=== PATIENT | female | born 1995 | race Hispanic/Latino ===

== ENCOUNTER 2024-07-03 07:38 | Day surgery (SDC) | payer MEDICAID ==
[2024-07-03] MEDS ORDERED: Ondansetron PF 4 MG/2 ML Vial IVP PRN (08:42)
[2024-07-03] MEDS ORDERED: Dextrose 5%-Lactated Ringers 1,000 ML IV SCH (08:45)
[2024-07-03 09:04] VITALS: BMI 30.9
[2024-07-03] MEDS: Ondansetron PF 4 MG/2 ML Vial ONE (09:15)
[2024-07-03 09:19] LABS: #Basophils 0.04 10x3/uL (0.0-0.2); #Eosinophils 0.46 10x3/uL (0.0-0.5); #Monocytes 0.34 10x3/uL (0.0-1.1); #Neutrophils 9.03 10x3/uL (1.5-8.4); %Basophils 0.3 % (0.0-2.0); %Eosinophils 3.7 % (0.0-6.0); %Lymphocytes 20.1 % (18.0-47.0); %Monocytes 2.7 % (0.0-10.0); %Neutrophils 72.7 % (40.0-75.0); Hematocrit 32.9 % (34.9-44.5); Mean Corpuscular HGB CONC 33.4 g/dL (32.0-36.0); Mean Corpuscular Hemoglobin 28.5 pg (27.0-33.0); Mean Corpuscular Volume 85.2 fL (81.6-98.3); Mean Platelet Volume 10.2 fL (7.4-10.4); Platelet Count 302 10x3/uL (150-450); RBC Distribution Width 14.2 % (11.5-14.5); Red Blood Cell (RBC) Count 3.86 10x6/uL (3.90-5.03); White Blood Cell (WBC) Count 12.4 10x3/uL (3.5-10.5)
[2024-07-03 09:32] LABS: ALT (SGPT) 11 U/L (8-55); AST (SGOT) 9 U/L (5-34); Albumin 2.4 g/dL (3.5-5.0); Alkaline Phosphatase 58 U/L (40-110); Anion Gap 12 mmol/L (10-20); BUN (Urea Nitrogen) 6 mg/dL (7.0-18.7); Bilirubin, Total 0.2 mg/dL (0.2-1.2); Calc. Creatinine Clearance 172 mL/min (70-130); Calcium 8.3 mg/dL (7.8-10.44); Carbon Dioxide 20 mmol/L (22-29); Chloride 106 mmol/L (98-107); Estimated GFR 124; Globulin 3.2 g/dL (2.4-3.5); Glucose 159 mg/dL (70-105); Protein, Total 5.6 g/dL (6.0-8.3); Sodium 135 mmol/L (136-145)
[2024-07-03] MEDS: Potassium Chloride 20 MEQ in Premix 1 BAG IVPB SCH (10:17)
[2024-07-03 10:54] LABS: Bilirubin Neg (Negative); Blood, Urine Negative (Negative); Glucose, Urine (Dipstick) 250 mg/dL (Negative); Ketone, Urine Negative (Negative); Leukocyte Negative (Negative); Nitrite Negative (Negative); Protein, Urine (Dipstick) Negative (Neg-Trace); Urobilinogen Normal mg/dL (Less than 2)
[2024-07-03 10:55] LABS: Clarity Clear (Clear)
[2024-07-03 11:28] LABS: Bacteria/HPF Rare-Few HPF (None Seen); CAUTI Indications for Culture Pelvic or flank pain; RBC/HPF None Seen HPF (0-3); WBC/HPF None Seen HPF (0-3)
[2024-07-03 11:29] LABS: Urine Culture Reflex No No
== END 2024-07-03 11:58 | disposition home or self-care (01) ==
LOC: CSHLD/OP 07:38
PROVIDERS: ATTEND Obstetrics & Gynecology
DX: O98.512 Other viral diseases complicating pregnancy, second trimester (principal); A08.4 Viral intestinal infection, unspecified; O21.2 Late vomiting of pregnancy; O99.282 Endocrine, nutritional and metabolic diseases complicating pregnancy, second trimester; E87.6 Hypokalemia; Z79.82 Long term (current) use of aspirin; Z79.899 Other long term (current) drug therapy; Z3A.20 20 weeks gestation of pregnancy
CPT/HCPCS: 76815; 80053; 81001; 85025; 96360; 96361; 99284; J2405; J3480

== ENCOUNTER 2024-07-29 19:14 | Day surgery (SDC) | payer MEDICAID ==
[2024-07-29] MEDS ORDERED: hydrALAZINE 20 MG/ML VIAL SLOW IVP PRN (19:41)
[2024-07-29 20:06] VITALS: BMI 44.6
[2024-07-29] MEDS: Lactated Ringer's 1,000 ML IV SCH (20:15)
[2024-07-29] MEDS: diphenhydrAMINE 50 MG/ML VIAL IVP PRN (20:45)
[2024-07-29] MEDS: Metoclopramide HCl 10 MG (2 mL) VIAL IVP SCH (20:45)
[2024-07-29] MEDS: Cyclobenzaprine 10 MG TAB PO SCH (20:45)
[2024-07-29 20:56] LABS: ALT (SGPT) 16 U/L (8-55); AST (SGOT) 11 U/L (5-34); Albumin 2.9 g/dL (3.5-5.0); Alkaline Phosphatase 80 U/L (40-110); Anion Gap 14 mmol/L (10-20); BUN (Urea Nitrogen) 6 mg/dL (7.0-18.7); Bilirubin, Total 0.5 mg/dL (0.2-1.2); Calc. Creatinine Clearance 255 mL/min (70-130); Calcium 8.7 mg/dL (7.8-10.44); Carbon Dioxide 20 mmol/L (22-29); Chloride 105 mmol/L (98-107); Estimated GFR 123; Globulin 3.7 g/dL (2.4-3.5); Glucose 79 mg/dL (70-105); Potassium 3.5 mmol/L (3.5-5.1); Protein, Total 6.6 g/dL (6.0-8.3); Sodium 135 mmol/L (136-145)
== END 2024-07-29 23:10 | disposition home or self-care (01) ==
LOC: CSHLD/OP 19:14
PROVIDERS: ATTEND Obstetrics & Gynecology
DX: O99.891 Other specified diseases and conditions complicating pregnancy (principal); R10.11 Right upper quadrant pain; R51.9 Headache, unspecified; O34.211 Maternal care for low transverse scar from previous cesarean delivery; Z90.49 Acquired absence of other specified parts of digestive tract; Z90.89 Acquired absence of other organs; Z79.899 Other long term (current) drug therapy; Z3A.24 24 weeks gestation of pregnancy
CPT/HCPCS: 80053; 83690; 96360; 96374; 99284; J1200; J2765